=== PATIENT | female | born 1940 | race Asian ===

== ENCOUNTER 2018-02-07 11:25 | Outpatient (CLI) | payer MEDICARE, OTHER ==
[~2018-02-07] VITALS: Ht 162.6 cm; Wt 50.0 kg
--- NOTE | ~2018-02-07 | HEMODYNAMI ---
PATIENT:CARLOS VALENCIA MEDICAL RECORD: [id number] : 40 LOCATION:[facility] ADMISSION DATE: 02/07/18 Generatedon:02/07/201814:32 Patient name: CARLOS VALENCIA Patient #: [id number] SSN: : 1940 Date of study: 02/07/2018 Page: Of Hemodynamic Procedure Report Patient Data Patient Demographics Procedure consent was obtained First Name: CARLOS Gender: Female Last Name: ANNIE : 1940 Patient #: [id number] Age: 77 year(s) Race: Additional ID: [id number] Contact details Address: [address] [place] [address] State: [place] City: [place] Zip code: [address] Past Medical History Allergies: No known allergies Admission Admission Data Admission Date: 02/07/2018 Admission Time: 11:25 Procedure Procedure Types Cath Procedure Peripheral Cath Diagnostic Procedure 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 Peripheral Procedures Kjugr-Skmvxbi-Ndw-Off Procedure Description Procedure Date Procedure Date: 02/07/2018 Procedure Start Time: 14:23 Procedure End Time: 14:31 Procedure Staff Name Function Darren Byrne MD Performing Physician David Hines RT Monitor Luis Ayers RN Nurse Linda Grullon RT Scrub Procedure Data Cath Procedure Fluoroscopy Diagnostic fluoroscopy Total fluoroscopy Time: 0.5 time: 0.5 min min Diagnostic fluoroscopy Total fluoroscopy dose: 39 dose: 39 mGy mGy Contrast Material Contrast Material Type Amount (ml) Isovue 300 41 Entry Location Entry Primary Successful Side Size Upsize Upsize Entry Closure Succes sful Closure Location (Fr) 1 (Fr) 2 (Fr) Remarks Device Remarks Femoral Left 5 Fr Exoseal artery Estimated blood loss: 5 ml Diagnostic catheters Device Type Used For End Catheter Placement DIAGNOSTIC UF 5Fr Procedure catheter ([id number]) Procedure Complications No complications Procedure Medications Medication Administration Route Dosage Oxygen etCO2 Nasal cannula 2 l/min Lidocaine 2% added to field 20 Heparin Flush Bag added to field 2 bags (1000units/500ml NS) 0.9% NaCl I.V. 100 ml/hr Fentanyl I.V. 25 mcg Hemodynamics Rest Heart Rate: 54 (bpm) Snapshots Pre Cath Intra NCS Post Cath Vital Signs Time Heart Resp SPO2 etCO2 NIBP (mmHg) Rhythm Pain Sedation Rate (ipm) (%) (mmHg) Status Level (bpm) 14:06:29 53 15 99 0 182/81(159) NSR 0 (11) 9(A) , No pain 14:10:51 54 14 99 0 185/80(165) NSR 0 (11) 9(A) , No pain 14:15:15 55 15 99 0 179/75(159) NSR 0 (11) 9(A) , No pain 14:19:41 53 15 98 0 173/66(152) NSR 0 (11) 9(A) , No pain 14:24:01 56 26 99 8.3 174/77(140) NSR 0 (11) 9(A) , No pain 14:28:21 54 19 99 1.5 168/75(98) NSR 0 (11) 9(A) , No pain Medications Time Medication Route Dose Verified Delivered Reason Notes Effe ctiveness by by 14:05:37 Oxygen etCO2 2 Darren Buffie used for Nasal l/min Chavez Ayers RN procedure cannula 14:05:45 Lidocaine 2% added 20ml Darren Darren used for to vial Chavez Byrne MD procedure field 14:05:51 Heparin Flush added 2 Darren Darren used for Bag to bags Chavez Byrne MD procedure (1000units/500ml field NS) 14:05:58 0.9% NaCl I.V. 100 Darren Buffie Per ml/hr Chavez Ayers RN physician 14:18:52 Fentanyl I.V. 25 Darren Buffie for mcg Chavez Ayers RN sedation Procedure Log Time Note 13:47:15 Time tracking: Regular hours (M-F 7:00 - 5:00) 13:47:19 Plan of Care:Hemodynamics will remain stable., Cardiac rhythm will remain stable., Comfort level will be maintained., Respiratory function will remain adequate., Patient/ family verbilizes understanding of procedure., Procedure tolerated without complication., Recovers from procedure without complications.. 13:52:33 Luis Ayers RN sent for patient. Start room use. 13:58:45 Patient received from Pre/Post Procedure Room to CCL 2 Alert and oriented. Tansferred to table in Supine position. 13:58:47 Warm blankets applied, and roberto hugger turned on for patient comfort. 13:58:47 Correct patient and procedure confirmed by team. 13:58:48 Signed procedure consent form obtained from patient. 13:58:49 ECG and BP/O2 sat monitors applied to patient. 13:58:58 H&P Date Dictated: 01/24/2018 Within 30 days and on chart., H&P Addendum completed by physician on day of procedure. (MUST COMPLETE FOR ALL OUTPATIENTS). 13:58:59 Pre-procedure instructions explained to patient. 13:58:59 Pre-op teaching completed and patient verbalized understanding. 13:59:00 Family in waiting room. 13:59:01 Patient NPO since Midnight. 14:05:22 Vital chart was started 14:05:37 Oxygen 2 l/min etCO2 Nasal cannula was administered by Luis Ayers RN; used for procedure; 14:05:45 Lidocaine 2% 20ml vial added to field was administered by Darren Byrne MD; used for procedure; 14:05:51 Heparin Flush Bag (1000units/500ml NS) 2 bags added to field was administered by Darren Byrne MD; used for procedure; 14:05:58 0.9% NaCl 100 ml/hr I.V. was administered by Lusi Ayers RN; Per physician; 14:11:23 Baseline sample Acquired. 14:11:31 Rhythm: sinus rhythm 14:11:33 Full Disclosure recording started 14:12:59 Patient allergic to No known allergies 14:13:03 Is the patient allergic to Iodine/contrast media? No. 14:13:05 Is patient on blood thinner?No 14:13:06 Patient diabetic? Yes. 14:13:07 If diabetic: On Metformin? Yes 14:13:18 Previous problem with sedation/anesthesia? No ? 14:13:20 Snore? No 14:13:38 Sleep apnea? No 14:13:39 Deviated septum? No 14:13:51 Opens mouth fully? Yes 14:13:51 Sticks out tongue? Yes 14:13:53 Airway obstruction? No ? 14:13:55 Dentures? No ? 14:13:58 Pre procedure: right dorsailis pedis pulse 2+ Normal; easily identifiable; not easily obliterated 14:14:04 Pre procedure: left dorsailis pedis pulse 2+ Normal; easily identifiable; not easily obliterated 14:14:07 Patient pain scale 0/10 ?. 14:14:15 IV patent on arrival in left forearm with 0.9% NaCl at [facility]. 14:14:20 Lab results completed and on chart. 14:14:24 Bilateral groins area was prepped with chlora-prep and draped in sterile fashion 14:14:26 Alarms reviewed by R. N. 14:14:26 Sharps counted by scrub and verified by R.N. 14:14:29 ACIST Syringe (73212) opened to sterile field. 14:14:30 Bag Decanter (2002S) opened to sterile field. 14:14:31 Medline Cath Pack ([id number]) opened to sterile field. 14:14:32 ACIST Hand Control (37538) opened to sterile field. 14:14:32 ACIST Manifold (57787) opened to sterile field. 14:14:33 Tegaderm 4 x 4 (1626W) opened to sterile field. 14:14:35 SHEATH 5FR Bernard ([id number]) opened to sterile field. 14:14:36 DIAGNOSTIC WIRE .035 260cm J wire (137898) opened to sterile field. 14:14:54 Physician arrived 14:14:54 --------ALL STOP TIME OUT------ 14:14:55 Final Timeout: patient, procedure, and site verified with staff and physician. All members of the team are in agreement. 14:14:57 Bilateral groins site verified by team. 14:15:00 Physical assessment completed. ASA score P 2 - A patient with mild systemic disease as per Darren Byrne MD. 14:15:02 Sedation plan: IV Moderate Sedation Medication:Versed, Fentanyl 14:18:52 Fentanyl 25 mcg I.V. was administered by Luis Ayers RN; for sedation; 14:20:28 Zero performed for pressure channel P1 14:23:30 Procedure started. 14:23:35 Local anesthetic to left femerol artery with Lidocaine 2% by Darren Byrne MD.INITIAL ACCESS ONLY 14:23:58 A 5 Fr sheath was inserted into the Left Femoral artery 14:24:03 A DIAGNOSTIC UF 5Fr catheter ([id number]) was advanced over the wire and used for Procedure. 14:25:10 Abdominal angiogram w/ runoff was performed. 14:25:36 Left leg runoff performed. 14:26:00 Right leg runoff performed. 14:27:34 Catheter removed. 14:27:54 EXOSEAL 5Fr (EX500) opened to sterile field. 14:28: Sheath removed intact; hemostasis achieved with Exoseal to the Left Femoral artery. 14:28:03 Procedure ended.(Physican Out) 14:28:13 Fluoroscopy time 00.50 minutes. 14:28:17 Fluoroscopy dose: 39 mGy 14:28: Flurop Dose total: 39 14:28:19 Contrast amount:Isovue 300 41ml. 14:29:26 Sharps counted by scrub and verified by R.N. 14:29:27 Insertion/operative site no bleeding no hematoma. 14:29:30 Post-op/insertion site Left Femoral artery dressed using a 4 x 4 and Tegaderm. 14:29:34 Post left femerol artery:stable, soft, clean and dry 14:29:36 Post Procedure Pulses reassessed and unchanged 14:29:38 Post-procedure physical assessment completed. ASA score P 2 - A patient with mild systemic disease as per Darren Byrne MD. 14:29:39 Post procedure rhythm: unchanged. 14:29:41 Estimated blood loss: 5 ml 14:29:42 Post procedure instruction explained to patient.Patient verbalizes understanding. 14:29:43 Patient needs reinforcement of post procedure teaching. 14:30:52 Procedure and supply charges have been captured, reviewed, submitted and are correct. 14:30:54 Procedure Complication : No complications 14:30:56 Vital chart was stopped 14:30:57 See physician's report for complete and final results. 14:30:58 Report given to Pre/Post Procedure Room. 14:30:59 Patient transfered to Pre/Post Procedure Room with Stretcher. 14:31:01 Procedure ended. 14:31:01 Full Disclosure recording stopped 14:31:08 End room use (Document Last) Device Usage Item Name Manufacture Quantity Catalog Hospital Part Current Minimal L ot# / Number Charge Number Stock Stock Serial# Code [facility] 1 19781 438301 [id number] [id number] 20 Syringe Medical (58595) Systems Inc Bag Microtek 1 2001S 123018 05628 258470 5 Decanter Medical Inc. () Medline Medline 1 [id number] 070826 00980 116277 5 Cath Pack ([id number]) ACIST Hand Acist 1 17746 216616 345356 882226 5 Control Medical (97486) Systems Inc ACIST Acist 1 28705 539197 226785 064298 5 Manifold Medical (81175) Systems Inc Tegaderm 4 3M 1 1626W 816319 235926 192908 5 x 4 (1626W) SHEATH 5FR Terumo 1 [id number] 519688 177920 013312 40 Bernard (BKG611) DIAGNOSTIC [facility] 1 592729 833685 192457 118625 30 WIRE .035 260cm J wire (002602) DIAGNOSTIC Cardinal 1 [id number] 460978 122071 774139 10 UF 5Fr Health catheter ([id number]) EXOSEAL 5Fr Cardinal 1 EX500 924876 934264 173277 10 (EX500) Health Signature Audit [place] Stage Time Signature Unsigned Intra-Procedure 02/07/2018 David Hines 2:32:18 PM RT(R) Signatures Monitor : David Hines RT Signature : Date : Time : [address] [place] [address]
[2018-02-07] MEDS ORDERED: MOBIC7.5 MG PO (11:58)
[2018-02-07] MEDS ORDERED: LISINOPRIL10 MG PO (11:59)
[2018-02-07] MEDS ORDERED: PIOGLITAZONE15 MG PO (11:59)
[2018-02-07] MEDS ORDERED: GABAPENTIN100 MG PO (11:59)
[2018-02-07] MEDS ORDERED: OMEPRAZOLE20 M1 PO (12:00)
[2018-02-07] MEDS ORDERED: LIPITOR10 MG PO (12:00)
[2018-02-07] MEDS ORDERED: ASPIRIN81 MG PO (12:01)
[2018-02-07] MEDS ORDERED: FERROUS SULFAT325 MG PO (12:01)
[2018-02-07 12:19] VITALS: BP 175/70; Ht 162.6 cm; Wt 50.0 kg
[2018-02-07 12:26] LABS: BASOPHILS 0.8 % (0-2); EOSINOPHILS 5.5 % (0-7); HEMATOCRIT 38.7 % (36.0-48.0); IMMATURE GRANULOCYTES 0.2 % (0-5); LYMPHOCYTES 33.5 % (15-50); MCHC 33.6 g/dL (31.0-37.0); MCV 92.1 fL (80.0-100.0); MEAN PLATELET VOLUME 10.3 fL (7.4-10.4); MONOCYTES 9.7 % (2-11); NEUTROPHILS 50.3 % (40-80); PLATELET COUNT 209 10x3/uL (130-400); RDW 13.1 % (11.5-14.5); WBC 6.4 10x3/uL (4.8-10.8)
[2018-02-07 12:35] LABS: ANION GAP 12.8 mmol/L (8-16); CALCIUM 9.1 mg/dL (8.5-10.1); CARBON DIOXIDE 29.6 mmol/L (21.0-32.0); CREATININE - SERUM 0.8 mg/dL (0.6-1.3); POTASSIUM - SERUM 3.4 mmol/L (3.5-5.1)
== END 2018-02-07 17:20 | disposition home or self-care (01) ==
LOC: D.CATH 11:25
PROVIDERS: Internal Medicine Cardiovascular Disease
DX: I70.219 Atherosclerosis of native arteries of extremities with intermittent claudication, unspecified extremity (principal); Z01.812 Encounter for preprocedural laboratory examination